=== PATIENT | female | born 1990 | race Caucasian/White ===

== ENCOUNTER 2019-09-11 03:19 | Emergency (ER) | payer OTHER ==
[~2019-09-11] VITALS: Ht 154.9 cm; Wt 72.9 kg
--- NOTE | 2019-09-11 03:37 | NUR ---
PT AMBULATORY FROM TRIAGE. STATES LLQ PAIN X 4 DAYS, SEEN AT URGENT CARE, TOOK STOOL SOFTNER S RELIEF. WOKE UP THIS AM C LOWER PELVIC PAIN, & PAINFUL URINATING. TOOK MOTRIN & TYL @ 0200. PT PROVIDED URINE SAMPLE. AT BS.
[2019-09-11 04:06] LABS: MEAN CORPUSCULAR HEMOGLOBIN 31.4 pg (27.0-34.8); MEAN CORPUSCULAR HGB CONC 32.9 g/dL (32.4-35.8); MEAN CORPUSCULAR VOLUME 95.3 fL (80-100); MEAN PLATELET VOLUME 8.7 fL (7.4-10.4); PLATELET COUNT 242 x10^3/uL (130-400); RED CELL DISTRIBUTION WIDTH 14.2 % (9.6-15.2)
[2019-09-11 04:11] LABS: HCG UR SG 1.041 (1.003-1.030)
[2019-09-11 04:14] LABS: MICROSCOPIC INDICATED
[2019-09-11 04:23] LABS: ALANINE AMINOTRANSFERASE 20 U/L (12-78); ALBUMIN 3.4 g/dL (3.4-5.0); ALKALINE PHOSPHATASE 90 U/L (45-117); ANION GAP 6 mmol/L (5-15); BILIRUBIN,TOTAL 1.2 mg/dL (0.2-1.0); CALCIUM 8.4 mg/dL (8.5-10.1); CHLORIDE 113 mmol/L (98-107); CREATININE 0.77 mg/dL (0.55-1.02)
[2019-09-11 04:32] LABS: MD YES
[2019-09-11 04:34] LABS: ANISOCYTOSIS 1+; EOS#(MANUAL) 0.14 x10^3/uL (0.0-0.4); EOS% (MANUAL) 1 % (1-7); LYMPH#(MANUAL) 0.95 x10^3/uL (1-3.4); LYMPHS% (MANUAL) 7 % (22-44); MONOS#(MANUAL) 1.08 x10^3/uL (0.3-2.7); MONOS% (MANUAL) 8 % (2-9); SEG#(MANUAL) 11.34 x10^3/uL (1.8-6.8); SEGS% (MANUAL) 84 % (42-75)
[2019-09-11 04:34] LABS: CULTURE INDICATED? YES
[2019-09-11 04:35] LABS: <PLATELET ESTIMATE> ADEQUATE; <PLT MORPHOLOGY> NORMAL PLT MORPH
[2019-09-11 06:54] VITALS: BP 111/62
--- NOTE | 2019-09-11 06:54 | NUR ---
BEDSIDE REPORT RECEIVED FROM BARRY RN, ASSUMED CARE OF PT. PT UPDATED ON POC, VSS.
--- NOTE | 2019-09-11 07:38 | NUR ---
Patient/Caregiver given discharge instructions and they have confirmed that they understand the instructions. Patient ambulatory with steady gait.
== END 2019-09-11 07:42 | disposition home or self-care (01) ==
LOC: ED 07:30
DX: N83.292 Other ovarian cyst, left side (principal); N83.291 Other ovarian cyst, right side; E78.5 Hyperlipidemia, unspecified; Z90.89 Acquired absence of other organs
CPT/HCPCS: 36415; 76830; 80053; 81001; 81025; 83690; 85025; 87086; 99284